=== PATIENT | female | born 1995 | race Caucasian/White ===

== ENCOUNTER 2022-08-06 11:55 | Emergency (ER) | payer BC, MEDICAID ==
[~2022-08-06] VITALS: Ht 172.7 cm; Wt 58.0 kg
[2022-08-06 12:04] VITALS: BP 141/94
[2022-08-06] MEDS ORDERED: ondansetron 4mg rapidly disintigrating tab PO ONE (15:35)
== END 2022-08-06 16:19 | disposition home or self-care (01) ==
LOC: ER 11:55
DX: F41.9 Anxiety disorder, unspecified (principal); F17.200 Nicotine dependence, unspecified, uncomplicated; Z56.0 Unemployment, unspecified
CPT/HCPCS: 93005; 99283

== ENCOUNTER 2025-04-10 12:03 | Emergency (ER) | payer MEDICAID, OTHER ==
[~2025-04-10] VITALS: Ht 172.7 cm; Wt 77.0 kg
--- NOTE | 2025-04-10 12:15 | Physician Documentation ---
History of Present Illness ~ Chief Complaint: Complications Stated Complaint: ABD PAIN Time Seen by MD: 13:43 OK to notify your PCP?: Yes Primary Medical Doctor: NONE Source: patient, RN/MD, RN notes reviewed, old records Mode of Arrival: POV Exam Limitations: no limitations HPI This is a 29-year-old female who is apparently five months presenting with severe right lower quadrant abdominal pain. She denies vaginal bleeding. She reports that she is feeling baby move. Patient reports there is a fullness in the suprapubic area denies any dysuria or frequency no bloody show no discharge. The pain is constant nonradiating. Medication Reconciliation Allergies: Coded Allergies: No Known Allergies (Unverified , 09/12/16) Past Medical History Past Medical History: Pneumonia Past Surgical History: no surgical history Drug Use: none Lives with: Family Lives In: Home Occupation: employed Review of Systems All Other Systems at this time: Reviewed and Negative Physical Exam Physical Exam Vital Signs: RN Vital Signs have been reviewed: Yes, Heart Rate: 109, Respiratory Rate: 16, BP: 108/81, Pulse Oximetry: 98, Weight: 77.000 Oxygen Flow Rate: 0 Physical Exam General: The patient is well developed, well nourished, nontoxic appearing and is in mild acute distress. Skin: [place], warm and dry with no rashes. HEENT: Head was normocephalic and atraumatic. Eyes - pupils equal, round, reactive to light and accommodation. Extraocular movements were intact. Conjunctivae were nonicteric. . The mouth and oropharynx were clear with moist mucous membranes. Neck: Supple and nontender. Chest: Clear to auscultation bilaterally without wheezes, rales or rhonchi. No accessory muscle use. Heart: Rate regular and rhythmic. S1, S2. No murmurs. Palpation of the chest wall was normal. Abdomen: Soft, nontender and nondistended. Positive bowel sounds. No guarding or rebound. No hepatosplenomegaly or palpable masses. Gravid abdomen no suprapubic discomfort Extremities: No cyanosis, clubbing or edema. The patient moves all extremities. Pulses were equal and symmetric. Neurologic: Motor sensory grossly intact Psychologic: The patient was oriented to person, place and time. The patient demonstrated appropriate judgement and insight. Progress Results/Orders Results/Orders Orders - JONATHAN TREVIÑO MD Magnesium Sulf-Water 2g/50ml (Magnesium (04/10/25 16:05) Hcg Serum Qt (04/10/25 16:20) Cult Urine + [place] (04/10/25 16:26) Completed Orders - JONATHAN TREVIÑO MD Normal Saline 1000ml (0.9% Sodium Chlori (04/10/25 13:45) Morphine 2mg/Ml Inj. (Morphine Inj.) (04/10/25 16:05) Ua W/Microscopic, Cult If Ind (04/10/25 15:55) Medications Received in ER Medications (Trade) Dose Ordered Sig/Sara Route PRN Reason Start Time Stop Time Status Last Admin Dose Admin (morphine inj.) 4 mg ONCE ONCE IV 04/10/25 12:15 04/10/25 12:16 DC 04/10/25 13:14 4 MG (Zofran 4mg/2ml vial) 4 mg ONCE ONCE IV 04/10/25 12:15 04/10/25 12:16 DC 04/10/25 13:14 4 MG Sodium Chloride 1,000 ml @ 1,000 mls/hr ONCE ONCE IV 04/10/25 12:15 04/10/25 13:14 DC 04/10/25 13:14 1,000 MLS/HR (0.9% sodium chloride (NS) 1000ml IV soln) 1,000 ml ONCE ONCE IVB 04/10/25 13:45 04/10/25 13:46 DC 04/10/25 14:02 1,000 ML Magnesium Sulfate 50 ml @ 25 mls/hr ONCE ONCE IV 04/10/25 16:05 04/10/25 18:04 04/10/25 16:18 25 MLS/HR (morphine inj.) 1 mg ONCE ONCE IV 04/10/25 16:05 04/10/25 16:06 DC 04/10/25 16:18 1 MG Vital Signs 04/10/25 04/10/25 04/10/25 04/10/25 12:10 13:14 13:19 13:41 Pulse 109 93 Resp 16 16 16 B/P (MAP) 108/81 129/88 (102) Pulse Ox 98 100 O2 Flow Rate 0 0 04/10/25 04/10/25 15:23 16:18 Pulse 82 Resp 16 16 B/P (MAP) 125/75 (92) Pulse Ox 99 O2 Flow Rate 0 Laboratory Tests Test 04/10/25 13:02 04/10/25 15:55 White Blood Count 18.7 H Red Blood Count 3.80 L Hemoglobin 10.9 L Hematocrit 32.3 L Mean Corpuscular Volume 84.8 Mean Corpuscular Hemoglobin 28.7 Mean Corpuscular Hemoglobin Concent 33.8 Red Cell Distribution Width 17.7 H Platelet Count 377 Mean Platelet Volume 8.5 Neutrophils (%) (Auto) 88.1 H Lymphocytes (%) (Auto) 8.5 L Monocytes (%) (Auto) 2.9 Eosinophils (%) (Auto) 0.1 Basophils (%) (Auto) 0.4 Neutrophils # (Auto) 16.5 H Lymphocytes # (Auto) 1.6 Monocytes # (Auto) 0.6 Eosinophils # (Auto) 0.0 Basophils # (Auto) 0.1 CBC Comment Sodium Level 139 Potassium Level 3.9 Chloride Level 103 Carbon Dioxide Level 21.5 L Anion Gap 15 Blood Urea Nitrogen 5 L Creatinine 0.73 Estimated GFR/1.73 m2 > 90 BUN/Creatinine Ratio 6.8 L Glucose Level 93 Calcium Level 8.7 Total Bilirubin 0.8 Aspartate Amino Transf (AST/SGOT) 36 Alanine Aminotransferase (ALT/SGPT) 30 Alkaline Phosphatase 99 Total Protein 7.1 Albumin 3.2 L Globulin 3.9 Albumin/Globulin Ratio 0.8 L Lipase 67 Chemistry Comments Urine Specimen Description Cln catch midstream Urine Color Straw Urine Clarity Slightly cloudy Urine pH 6.0 Urine Specific [place] <=1.005 Urine Protein Negative Urine Glucose (UA) Negative Urine Ketones 40 H Urine Occult Blood Negative Urine Nitrite Negative Urine Bilirubin Negative Urine Urobilinogen 0.2 Urine Leukocyte Esterase Negative Urine RBC 0-2 Urine WBC 5-10 H Urine Squamous Epithelial Cells Moderate Urine Transitional Epithelial Cells Moderate Urine Bacteria Few Urine Mucus Moderate Urine Culture Indicated Indicated Volume Urine Centrifuged 10 ml Urine Comment Re-Evaluation Re-Evaluation : Re-Evaluation: Improved Additional Notes Patient was seen and examined. Patient is given reassurance. Patient received 2 L of fluids. Patient continued to have some abdominal cramping. Magnesium was infused as well as low-dose morphine 2 mg. Patient's laboratory work showed a leukocytosis of 18.7 but the patient is and her last WBC was also elevated. Borderline anemia with a hematocrit of 32 chemistry shows slight CO2 decreased to 21 otherwise chemistries within normal limits LFTs within normal limits. Urinalysis shows 5-10 WBCs with moderate squamous cells but also multiple transitional epithelial cells consistent with a contaminant. Culture is indicated and pending. Ultrasound was obtained and showed intrauterine with the fetus of 22 weeks one day and within normal limits. There is no abnormality seen on ultrasound. Patient improved her vitals improved she is feeling a bit better her heart rate initially was in the 100s currently in the low 80s high 70s. Patient will be discharged home to follow up with her consular officer as needed. EKG/XRAY/CT/US/VASC/MRI Ultrasound #1: Ultrasound of: abdomen, pelvis Impression LIMITED OB ULTRASOUND > 14 WKS: HISTORY: severe abd pain TECHNIQUE: Multiple real-time grayscale images of the gravid uterus with duplex Doppler color flow and M-mode spectral analysis. TRANSDUCER: Transabdominal COMPARISON: None FINDINGS: IUP single live fetus at 22 weeks and 1 day based on composite averages of the BPD, head circumference, abdominal circumference and femur length Estimated weight 460 grams heart rate 163 beats per minute KHUSHI 14.7 cm Cervix is closed and measures 5.3 cm Variable Presentation Fundal/anteriorPlacenta without previa or abruption. IMPRESSION: IUP single live fetus at 22 weeks and 1 day AUA corresponding to an HERIBERTO of 08/13/2025 Ultrasound #2: Ultrasound of: abdomen Impression Ordering Physician: CHANTE WU SOFTWARE PROGRAM MANAGER Exam: ULTRASOUND OF ABDOMEN INDICATION: severe abd pain TECHNIQUE: Graded compression technique along with Multiple real-time sonographic images were obtained for evaluation of the right lower quadrant. FINDINGS: The appendix was not visualized. No free fluid or lymph nodes are seen on this exam. IMPRESSION: 1.Nonvisualization of the appendix, thus cannot exclude appendicitis. Electronically Signed by:JAZ MAYFIELD MD Medical Decision Making Additional info obtained from: old records Differential Dx:Considerations: Include: -threatened, Abruptio placentae, Active labor-, Appendicitis, Neri-Joy contraction, Cystitis: Acute, Discomfort of , Ectopic , Ectopic preg.- ruptured, demise, Placenta previa, Pyelonephritis: Acute, Ruture of membranes, Third trimester bleeding, UTI, Other Departure Disposition: 01 HOME / SELF CARE / HOMELESS Impression: Primary Impression: Complication of Qualified Codes: O26.92 - related conditions, unspecified, second trimester Additional Impression: Vomiting Qualified Codes: R11.2 - Nausea with vomiting, unspecified Condition: Stable Discharge Instructions: Abdominal Pain During , [id number] Referrals: NO PRIMARY CARE PROVIDER (PCP) Education Educated: Patient Educated regarding: diagnosis, need for follow up, other Signature Scribe Signature: . Attestation: The note accurately reflects work and decisions made by me.Jonathan Treviño MD 04/10/25 15:39 CHANTE WU NP Apr 10, 2025 12:15 JONATHAN TREVIÑO MD Apr 10, 2025 15:39
[2025-04-10] MEDS: morphine 4 MG/ML inj SYRINge IV ONE (13:14)
[2025-04-10] MEDS: normal saline 1000ml 1,000 ML IV ONE (13:14)
[2025-04-10] MEDS: ondansetron/PF 4mg/2ml inj IV ONE (13:14)
[2025-04-10 13:22] LABS: MEAN PLATELET VOLUME 8.5 FL (7.4-10.4); RED CELL DISTRIBUTION WIDTH 17.7 % (11.5-14.5)
[2025-04-10 13:37] LABS: CREATININE 0.73 MG/DL (0.40-0.90); TOTAL CARBON DIOXIDE 21.5 MMOL/L (24-32); eCRCL 116 ML/MIN; eGFR > 90 ML/MIN
--- NOTE | 2025-04-10 13:59 | RADIOLOGY REPORT ---
INDICATION: severe abd pain TECHNIQUE: Graded compression technique along with Multiple real-time sonographic images were obtain ed for evaluation of the right lower quadrant. FINDINGS: The appendix was not visualized. No free fluid or lymph nodes are seen on this exam. IMPRESSION: 1.Nonvisualization of the appendix, thus cannot exclude appendicitis.
[2025-04-10] MEDS: normal saline 1000ML IV soln IVB ONE (14:02)
--- NOTE | 2025-04-10 14:14 | RADIOLOGY REPORT ---
LIMITED OB ULTRASOUND > 14 WKS: HISTORY: severe abd pain TECHNIQUE: Multiple real-time grayscale images of the gravid uterus with duplex Doppler color flow an d M-mode spectral analysis. TRANSDUCER: Transabdominal COMPARISON: None FINDINGS: IUP single live fetus at 22 weeks and 1 day based on composite averages of the BPD, head circumferenc e, abdominal circumference and femur length Estimated weight 460 grams heart rate 163 beats per minute KHUSHI 14.7 cm Cervix is closed and measures 5.3 cm Variable Presentation Fundal/anteriorPlacenta without previa or abruption. IMPRESSION: IUP single live fetus at 22 weeks and 1 day AUA corresponding to an HERIBERTO of 08/13/2025
[2025-04-10 16:17] LABS: LEUKOCYTE ESTERASE ,URINE NEGATIVE (Neg); NITRITES, URINE NEGATIVE (Neg); OCCULT BLOOD,URINE NEGATIVE (Neg)
[2025-04-10] MEDS: magnesium sulf-water 2g/50mL 50 ML IV ONE (16:18)
[2025-04-10 16:22] LABS: UA COLLECTION TYPE CLN CATCH MIDSTREAM
[2025-04-10 16:23] LABS: MUCUS STRANDS MODERATE /LPF (Neg)
[2025-04-10 16:25] LABS: SQUAMOUS EPITHELIAL CELL,UR MODERATE /LPF (FEW)
[2025-04-10 17:28] VITALS: BP 120/75; PULSE 73; RESP 16; O2SAT 100
== END 2025-04-10 17:30 | disposition home or self-care (01) ==
LOC: ER 12:03
DX: O26.892 Other specified pregnancy related conditions, second trimester (principal); R10.31 Right lower quadrant pain; Z3A.22 22 weeks gestation of pregnancy
CPT/HCPCS: 36415; 76705; 76815; 80053; 81001; 83690; 84702; 85025; 86885; 86900; 86901; 87088; 96361; 96365; 96375; 96376; 99285; J2270; J2405; J7030; 96374